=== PATIENT | male | born 1970 | race Caucasian/White ===

== ENCOUNTER → 2016-09-03 | Outpatient (CLI) | payer BC ==
[~2016-09-03] MED LIST: CIPRO 500MG TA500 MG PO; NO HOME MEDICATIONS
== END ==
LOC: COL.PUL 09:54
DX: R05 Cough (principal)

== ENCOUNTER → 2021-01-30 | Outpatient (CLI) | payer BC | LOC: COL.RAD 10:06 | DX: N39.0 Urinary tract infection, site not specified (principal) ==

== ENCOUNTER → 2021-11-21 | Outpatient (CLI) | payer BC | LOC: COL.RAD 09:09 | DX: R74.9 Abnormal serum enzyme level, unspecified (principal); E66.9 Obesity, unspecified ==